=== PATIENT | male | born 1950 | race Caucasian/White ===

== ENCOUNTER 2021-10-14 06:43 | Observation (INO) ==
--- NOTE | 2021-09-10 14:07 | PAT Medication Instructions ---
Medication Instructions Date of Service September 10, 2021 Home Medications acetaminophen 500 mg tablet 1,000 mg PO Q6H PRN apixaban 5 mg tablet (Eliquis) 5 mg PO BID atorvastatin 20 mg tablet 20 mg PO HS furosemide 20 mg tablet 60 mg PO QAM sotalol 80 mg tablet 80 mg PO BID ASK your prescriber and surgeon apixaban 5 mg tablet (Eliquis) 5 mg PO BID DO NOT take the morning of surgery furosemide 20 mg tablet 60 mg PO QAM Take morning of surgery With a small sip of water, OTHERWISE NOTHING TO EAT OR DRINK AFTER MIDNIGHT: acetaminophen 500 mg tablet 1,000 mg PO Q6H PRN(okay to take up to 4 hours prior to surgery if needed) sotalol 80 mg tablet 80 mg PO BID Take evening before surgery acetaminophen 500 mg tablet 1,000 mg PO Q6H PRN(if needed) atorvastatin 20 mg tablet 20 mg PO HS sotalol 80 mg tablet 80 mg PO BID Other Notes If you have any questions please call us at [phone] or [phone] or [phone] or [phone]
--- NOTE | 2021-09-14 13:06 | Anesthesiology Consultation ---
Date of Service September 14, 2021 Assessment & Plan (1) Encounter for pre-operative examination: - Case discussed with Dr. Monk and plan is for cardiology pre-op optimization notation. Form completed. awaiting cardiology pre-op optimization response. - Pt states was instructed on holding apixaban (Eliquis) 48 hours prior to surgery, aware this would need to be 72 hours to receive neuraxial anesthesia. He is aware to see if that is acceptable per cardiology, otherwise will undergo GA. - cardiology office visit 09/03/2021 [facility]: "...Paroxysmal atrial fibrillation Dx 2018 on sotalol 07/2019 on eliquis. Moderate Mitral regurgitation With mitral valve prolapse. Heart failure with preserved ejection fraction NYHA 2-3. 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 Had echo cardiogram in jul shows eccentric jet appears moderate but we could be missing part of the jet. He is currently feeling better , swelling has improved, shortness of breath has improved...cannot walk much due to knee problems is scheduled to have knee surgery...Underwent gastroplexy . during the admisiosn was found to be in atrial fibrillation.work up Echo showed eccentric MR but severity could not be assessed. He was recommended to get OLI as outpatient due to recent procedure. I have reviewed images it appears to be moderate less likely to be severe...chest pain describes it as tightness in lower chest and epigastric region; the epigastric pain is now getting better . Worse with food, occurs randomly not associated with activity worse certain p ositions. Has not been active due to knee pain...take lasix 60 mg daily. BMP in one week...continue with eliquis...echo within 6 months..." - COVID screening: Per assessment on 09/14/2021: Travel screen negative, no known COVID-19 positive contacts or current COVID-19 related symptoms in past 2 weeks. Surgeon arranging preop COVID testing, scheduled /2021. Awaiting results. Chart Review Chart Review: Pending: Refer to Additional Notes / Consult section and Patient seen in Pre Admission Testing Teaching & Discussion Pre-Anesthesia Teaching/Discussion Notes: Instructed NPO after midnight before surgery, except medications with 15 cc of water. Medication instructions provided according to the PAT guidelines. History Surgery Operation Date: 10/14/21 09:35 Proposed Procedures p Left Total Knee Arthroplasty - Negrito Fry MD Height/Weight Height: 5 ft 7 in Weight: 95.9 kg Allergies Allergy/AdvReac Type Severity Reaction Status Date / Time No Known Allergies Allergy Unknown Verified 09/10/21 08:23 Medications Home Medications Medication Instructions Recorded Confirmed Last Taken acetaminophen 500 mg tablet 1,000 mg PO Q6H PRN 09/10/21 09/10/21 Unknown apixaban 5 mg tablet (Eliquis) 5 mg PO BID 09/10/21 09/10/21 Unknown atorvastatin 20 mg tablet 20 mg PO HS 09/10/21 09/10/21 Unknown furosemide 20 mg tablet 60 mg PO QAM 09/10/21 09/10/21 Unknown sotalol 80 mg tablet 80 mg PO BID 09/10/21 09/10/21 Unknown Past Medical History Medical History (Updated 09/15/21 @ 12:06 by Olinda Reynoso PA-C) Arthritis Atrial fibrillation on Eliquis Follows with [facility] cardiology Cardiology office visit (09/03/21): "Heart failure with preserved ejection fraction NYHA 3.. Take lasix 60 mg daily.. BMP in one week.. Paroxysmal AFib.. On sotalol.. Continue with eliquis.. Moderate eccentric Mitral regurgitaion With mild mitral valve prolapse Echo within 6 months.. 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 On Lipitor 10 mg daily: increase to 20 mg daily" Enlarged prostate Fluid retention Following salt restriction diet GERD (gastroesophageal reflux disease) Controlled, stable per pt Hyperlipidemia Mitral regurgitation moderate Patient denies h/o stroke, seizures, heart attack, heart failure, DM, HTN, blood clots or blood transfusions. Exercise / Class Metabolic Activity II 4-5 Yardwork/Stairs/Walk up hill (SOB with 1 FOS does not need to stop, denies change or worsening, follows with [facility] cardio; denies CP) Past Family History Family History Other No known health problems Past Surgical History Surgical History History of colonoscopy History of esophagogastroduodenoscopy (EGD) History of laparotomy Gastropexy (for volvulus) Hx of transurethral resection of prostate Past Anesthesia History No Hx of Anesthesia Complications and No Family Hx of Anesthesia Complications History of PONV No Hx of PONV and No Hx of Motion Sickness Social History Smoking Status: Former smoker Do You Dip or Chew Tobacco: No Smoking End Date: QUIT 1972 Hx Alcohol Use: No Hx Substance Use: No Review of Systems Occasional snoring, denies witnessed apneas or sleep studies. Patient denies chest pain, shortness of breath, dyspnea on exertion, fever, chills, cough, wheezing, or palpitations. Physical Exam Vital Signs Vitals BP 149/74 P 72 TEMP 97.5 SP02 95% on RA RESP 17 Physical Full cervical extension range of motion without pain Full TMJ range of motion TMD 3.5 finger breaths Mallampati Score 2 Dentition: intact, several missing teeth, several caps/crowns-none in front; denies chipped or loose teeth, implants or bridges Lungs: normal respiratory effort. Clear throughout to auscultation, no adventitious breath sounds Cardiac: regular rate and rhythm, no murmurs noted Carotid arteries: negative bruit bilat Lab Results Anesthesia Preop Results Results Anesthesia Widget: WBC 5.21 K/uL (4.8-10.8) 09/14/21 Hgb 14.3 g/dL (14.0-18.0) 09/14/21 Hct 44.0 % (42-52) 09/14/21 Plt 95 K/uL (130-400) L 09/14/21 PT 11.8 Seconds (9.0-12.0) 09/14/21 PTT 32.4 Seconds (21.0-31.0) H 09/14/21 INR 1.1 (0.9-1.1) 09/14/21 HA1c 5.8 % (4.5-5.6) H 09/14/21 Urine Color Yellow 09/14/21 Urine Appearance Clear (Clear) 09/14/21 Urine pH 7.0 (4.5-7.5) 09/14/21 Urine Specific [place] 1.023 (1.000-1.030) 09/14/21 Urine Protein Negative (Negative) 09/14/21 Urine Glucose (UA) Negative (Negative) 09/14/21 Urine Ketones Negative (Negative) 09/14/21 Urine Blood Negative (Negative) 09/14/21 Urine Nitrite Negative (Negative) 09/14/21 Urine Bilirubin Negative (Negative) 09/14/21 Urine Urobilinogen Negative (Negative) 09/14/21 Urine Leukocyte Esterase Negative (Negative) 09/14/21 Blood Type A Positive 09/14/21 Antibody Screen NEGATIVE 09/14/21 Testing Laboratory Results 09/10/2021 SODIUM: 142 POTASSIUM: 4.4 CHLORIDE: 103 CO2: 32 BUN: 25 CREATININE: 1.0 GLUCOSE: 105 Electrocardiogram Date: 07/10/21 NSR, rate 64 bpm Chest X-Ray Date: 09/14/21 FINDINGS: There are low lung volumes. No focal lung consolidations to suggest pneumonia. No evidence for pulmonary edema. No pleural fusions. No pneumothorax. The heart is normal in size. There is a tortuous thoracic aorta. Slight elevation of the left hemidiaphragm is likely due to the gastric bubble. Small patchy densities within the right lung base favor subsegmental atelectasis. IMPRESSION: No acute process. Echocardiogram Date: 07/28/21 EF 55-59% LV wall thickness normal Grade II diastolic dysfunction Moderate eccentric mitral valve regurgitation Trace to mild tricuspid regurgitation Stress Test Date: 06/29/19 Pharmacologic MPHR 99% Negative for ischemia EF > 70%
--- NOTE | 2021-10-13 06:18 | History & Physical Report ---
Date of Service October 13, 2021 Assessment & Plan (1) Primary osteoarthritis of left knee: Plan: Treatment options discussed with the patient. He has failed conservative measures. He would like to proceed with surgical intervention. Risks, benefits and alternatives to surgery including but not limited to infection, DVT, pain, stiffness, need for revision surgery, damage to blood vessels, damage to nerves, PE, , were discussed with the patient and they wish to proceed. Plan on left total knee arthroplasty with Dr. Fry at [facility] on 10/14/21. Will resume home Eliquis post op for DVT prophylaxis. Will plan on home health PT post op. All questions answered. He will follow up post op. History of Present Illness Chief Complaint: Left knee pain Primary Care Provider: NO PCP 71 year old male with PMHx significant for paroxysmal afib, HALLIE, high cholesterol, GERD, mitral regurgitation, HFpEF presents with ongoing left knee pain. Patient has pain interfering with his daily activities. He has failed conservative measures including home exercises and injections. He would like to proceed with surgical intervention. Patient denies headaches, sweats, fevers, chills, double vision, blurred vision, cough, sore throat, dysphagia, chest pain, sob, wheezing, n/v/d/c, numbness, tingling, fatigue, urinary symptoms, mo od disorders. ROS positive for left knee pain and stiffness. Allergies Allergy/AdvReac Type Severity Reaction Status Date / Time No Known Allergies Allergy Unknown Verified 09/10/21 08:23 Home Medications Medication Instructions Recorded Confirmed Type acetaminophen 500 mg tablet 1,000 mg PO Q6H PRN 09/10/21 09/10/21 History apixaban 5 mg tablet (Eliquis) 5 mg PO BID 09/10/21 09/10/21 History atorvastatin 20 mg tablet 20 mg PO HS 09/10/21 09/10/21 History furosemide 20 mg tablet 60 mg PO QAM 09/10/21 09/10/21 History sotalol 80 mg tablet 80 mg PO BID 09/10/21 09/10/21 History Past Med/Surg History Medical History (Updated 10/13/21 @ 06:22 by hCris Washburn PA-C) Arthritis Atrial fibrillation on Eliquis Follows with [facility] cardiology Cardiology office visit (09/03/21): "Heart failure with preserved ejection fraction NYHA 3.. Take lasix 60 mg daily.. BMP in one week.. Paroxysmal AFib.. On sotalol.. Continue with eliquis.. Moderate eccentric Mitral regurgitaion With mild mitral valve prolapse Echo within 6 months.. 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 On Lipitor 10 mg daily: increase to 20 mg daily" Enlarged prostate Fluid retention Following salt restriction diet GERD (gastroesophageal reflux disease) Controlled, stable per pt Hyperlipidemia Mitral regurgitation moderate Surgical History History of colonoscopy History of esophagogastroduodenoscopy (EGD) History of laparotomy Gastropexy (for volvulus) Hx of transurethral resection of prostate Family History Other No known health problems Social History (Updated 09/10/21 @ 08:49 by Tere Rouse RN) Smoking Status: Former smoker Second Hand Exposure: No; Hx Alcohol Use: No Hx Substance Use: No Preferred Language: Romanian Communication Ability: Effective Shop Director Required: No Beliefs That Will Affect Care: None Current Living Situation: Spouse current occupational status: retired Feels Safe at Home: Yes Assistive Devices: Brace/Splint/Immobilizer and Glasses Review of Systems All systems reviewed & are unremarkable except as noted in HPI & below Physical Exam Constitutional: well developed and well nourished; no acute distress Eyes: PERRL, conjunctivae normal, anicteric sclerae ENMT: external ear and nose normal, oropharynx normal Neck: trachea midline, no thyromegaly Respiratory: normal respiratory effort, lungs clear to auscultation Cardiovascular: Rate/Rhythm: regular rate and regular rhythm Heart Sounds: + murmur (systolic murmur) Extremities: + edema (mild b/l LE edema) Musculoskeletal: Left knee: Varus alignment. Moderate effusion. Tenderness medial joint line. Positive Edgar's. Stable to valgus and varus stress. ROM 10-125 degrees with crepitation. Skin: no rashes, warm and dry Neurologic: patellar DTR's 2+ bilat, sensation intact Psychiatric: A+Ox3, euthymic affect Results & Data ([facility]) Diagnostic Findings Left knee: Endstage osteoarthritis left knee. Varus alignment. Bone on bone medial compartment. Periarticular osteophyte formation and subchondral sclerosis.
[~2021-10-14 06:43] MED LIST: ACETAMINOPHEN 500 MG TAB PO SCH; BUPIVACAINE 0.5 % 5 MG/1 ML PF 10ML VIAL ONE; CeleBREX 200 MG CAP PO SCH; FAMOTIDINE 20 MG TAB PO SCH; GABAPENTIN 300 MG CAP PO SCH; LR 500ML BOLUS, THEN 15ML/HR IV SCH; METOCLOPRAMIDE HCL 10 MG TABLET PO SCH; ROPIVACAINE 0.5% 5 MG/ML 30 ML VIAL ONE; ROPIVACAINE 0.5% HCL/PF 150 MG, BUPIVACAINE 0.75% MPF 20 ML, EPINEPHrine 30MG/30ML (OR ... INSTIL SCH; TRANEXAMIC ACID 1,000 MG **IV Intra-op IV SCH; TRANEXAMIC ACID 1,000 MG **IV Pre-op IV SCH; ceFAZolin 2000MG 2,000 MG/15 ML SYR IV SCH; dexAMETHasone 4 MG TAB PO SCH
[2021-10-14] MEDS ORDERED: HYDROmorphone INJ 2 MG/ML SYR/VIAL IV PRN (08:11)
[2021-10-14] MEDS ORDERED: fentaNYL citrate 100 MCG/2 ML VIAL IV PRN (08:11)
[2021-10-14] MEDS ORDERED: ONDANSETRON INJ 2 MG/ML 2 ML VIAL IV PRN ×2 (08:11→13:50)
[2021-10-14] MEDS ORDERED: ePHEDrine sulfate 50 MG/ML AMP IV PRN (08:11)
[2021-10-14] MEDS ORDERED: ATROPINE SULFATE 0.1 MG/ML 10ML SYR IV PRN (08:11)
[2021-10-14] MEDS ORDERED: PROMETHAZINE HCL 12.5 MG in SODIUM CHLORIDE 0.9% 50 ML IV PRN (08:11)
[2021-10-14] MEDS ORDERED: MIDAZOLAM HCL 1 MG/ML 2ML VIAL ONE ×2 (09:23)
--- NOTE | 2021-10-14 09:28 | History & Physical Bridge Note ---
Date of Service October 14, 2021 History & Physical Bridge Note I have examined the patient, reviewed the History & Physical and in the interval since the performance of the History & Physical I have noted the following changes of clinical significance: no changes noted
[2021-10-14] MEDS ORDERED: ORTHO JOINT ANESTHETIC ONE (09:32)
[2021-10-14] MEDS ORDERED: PROPOFOL IV EMULSION 10 MG/ML 20 ML VIAL IV ONE (09:45)
[2021-10-14] MEDS ORDERED: LIDOCAINE 2% 2 ML VIAL/AMP(20MG/ML) INFIL ONE (11:31)
--- NOTE | 2021-10-14 11:42 | Operative Report ---
Post Operative Report Pre & Post Diagnosis Operation Date: 10/14/21 09:30 Pre-Op Diagnosis: Left Knee Osteoarthritis Post-Op Diagnosis: Left Knee Osteoarthritis I identified the patient and participated in the time-out.: Yes Procedure Operation Date: 10/14/21 09:30 Actual Procedures p Left Total Knee Arthroplasty(Left), superficial wound VAC- Negrito Fry MD Surgeon Negrito Fry MD Shrimp Header Ceferino ALARCON Estimated Blood Loss 20 Findings Consistent with Post-Op Diagnosis Specimens Bone cuts Drains 2 Hemovac Anesthesia Type MAC Spinal Regional Complications none Disposition Disposition: Recovery Room Indications 71-year-old male with chronic progressive osteoarthritis of the left knee. Patient has a [id number] medial compartment subluxation of the femur medially on the tibia. Description of Procedure Patient was taken to the operating room placed supine on the operating table and anesthetized under spinal MAC regional block anesthesia. Exam under anesthesia demonstrated varus left knee no pseudolaxity with tight varus knee. Range of motion was 0 through 125. A pneumatic tourniquet was placed about the thigh of the left lower extremity. The left lower extremity was prepped and draped in usual sterile fashion. The leg was elevated exsanguinated with an Esmarch bandage and the pneumatic tourniquet was raised to 325 mm mercury. When the procedure was started this was inadequate due to some tourniquet dysfunction and we had to raise it in increments up to 375 which was more satisfactory. Incisio n was made across the left knee. The skin was incised longitudinally subcutaneous flaps were elevated and an incision was made through the medial retinaculum extending up into the mid third of the quadriceps tendon and extended down to the medial tibial tubercle. Intra-articular findings demonstrated [id number] eburnated bone medial compartment anteromedial wear pattern. There were tricompartmental osteophytes and chronic medial meniscus tear. The knee was exposed by excising the infrapatellar fat pad, excising the meniscal remnants and anterior cruciate ligament. Any inflamed synovial tissue was resected. The fat pad over the anterior femur was resected for placement of the component in that area. The lateral synovial bands were release. The femur was exposed. The custom femoral cutting block was pinned in position. The distal femoral cutting block was applied. The distal femoral cut was made with the oscillating saw. The size 8, 4-in-1 cutting block was placed. The anterior and posterior chamfer cuts were made. The knee was extended and a subperiosteal peel lateral release was performed around the patella. The patella width was measured and width was reproduced using freehand cut technique. The 35 millimeter symmetrical patella was used. 3 drill holes are made for the pegs. The tibia was exposed. A custom tibial cutting block was positioned and drill holes were made for the cutting guide. Cutting guide was placed and the proximal cut was made with the oscillating saw. All osteophytes were resected. The lamina retail property manager was used to assess ligamentous balance and the ligaments were balanced in extension and flexion. This required medial posterior medial release and piecrust MCL. The tibia was reexposed and measured for a size F tibial component. This was externally rotated in line with the tibial tubercle and the fixation pins were drilled. The proximal tibia was fashioned with the drill and punch. The size 8 CR femoral trial was inserted. The trial MC inserts were used. The 14 mm insert gave balanced ligaments through full range of motion. The patella tracked centrally. the trials were removed. The orthomix anesthetic cocktail was injected per protocol. The knee was then copiously irrigated with pulsatile lavage saline solution. The final components were cemented with Refobacin bone cement. The final components were Frank persona a left standard femoral component, left F tibial component, left 14 mm MC polyethylene, 35 symmetrical polyethylene patella. After the cement cured with the knee in full extension the Betadine soak was used per protocol. The knee joint was copiously irrigated with pulsatile lavage saline solution . 2 drains were brought out laterally and connected to a Hemovac. The quadriceps tendon and medial retinaculum were closed with interrupted [id number] #1 Vicryl sutures. The knee was taken through a full range of motion and repair was secure. Range of motion 0 through 130 degrees. The subcutaneous tissues were closed with 2-0 Vicryl sutures and skin was closed with angelita. Herbert and Acticoat superficial wound VAC was and the patient tolerated the procedure well. Ceferino ALARCON my physician photographer assistant participated as producer assistant through the entire procedure assisting in all aspects of the procedure including an assisting in soft tissue retraction, instrument management ,leg positioning, the closure, superficial wound VAC application and will participate in the postoperative care of the patient. I attest to the content of the Intraoperative Record and any orders documented therein. Any exceptions are noted below.
--- NOTE | 2021-10-14 12:52 | XRay Report ---
XR knee LT 1 or 2V routine HISTORY: 71 years-old Male Surgical Post Op [knee total joint arthroplasty COMPARISON: None TECHNIQUE: 2 views of the left knee FINDINGS: Left knee total joint arthroplasty and patella resurfacing. Anterior midline skin angelita are noted a long with expected postoperative soft tissue swelling and deep tissue air with surgical drainage cath eter in place. Arterial calcifications. No acute fracture, malalignment or an expected opaque foreign body. IMPRESSION: Left knee total joint arthroplasty with expected postoperative changes. ACT 112: Negative or not required by law. The above report was generated using voice recognition software. It may contain grammatical, syntax o r spelling errors. Electronically signed by: Cornel Crawford M.D. 10/14/2021 12:50 PM
[2021-10-14] MEDS ORDERED: TAMSULOSIN HCL 0.4 MG CAP PO PRN (13:50)
[2021-10-14] MEDS ORDERED: HYDROmorphone INJ 0.5 MG/0.5 ML SYR IV PRN (13:50)
[2021-10-14] MEDS ORDERED: bisacodyL 10 MG SUPP PR PRN (13:50)
[2021-10-14] MEDS ORDERED: MAGNESIUM HYDROXIDE SUSP 30 ML UDC PO PRN (13:50)
[2021-10-14] MEDS ORDERED: NALOXONE HCL 0.4 MG/1 ML VIAL/CARP IV PRN (13:50)
[2021-10-14] MEDS ORDERED: SODIUM CHLORIDE 0.9% 1000ML 1,000 ML IV SCH (13:50)
[2021-10-14] MEDS ORDERED: oxyCODONE HCL IR 5 MG TAB (IMMEDIATE RELEASE) PO PRN (13:50)
[2021-10-14] MEDS ORDERED: METOCLOPRAMIDE HCL INJ 5 MG/ML 2 ML VIAL IV PRN (13:50)
--- NOTE | 2021-10-14 14:21 | Anesthesiology Progress Note ---
Date of Service October 14, 2021 Anesthesia Post Procedure Vital Signs Vital Signs: Temp Pulse Pulse Resp BP BP Pulse Ox 10/14/21 14:00 72 21 108/62 97 10/14/21 13:45 68 20 108/67 95 10/14/21 13:35 70 20 108/63 95 10/14/21 13:25 36.5 C 70 17 115/59 L 96 10/14/21 13:15 67 22 109/62 95 10/14/21 13:05 70 20 108/65 96 10/14/21 12:55 66 22 108/72 93 10/14/21 12:45 69 23 113/71 93 10/14/21 12:35 67 22 114/67 92 10/14/21 12:25 71 21 121/70 98 10/14/21 12:16 36.0 C L 73 20 117/69 97 10/14/21 07:05 36.7 C 61 20 133/79 93 Pain Intensity Left Knee: Pain Intensity: 5 Transfer of Care Handoff Completed per policy Notes Mental Status: alert / awake / arousable and participated in evaluation Patient Amnestic to Procedure: Yes Nausea / Vomiting: adequately controlled Pain: adequately controlled Airway Patency, RR, SpO2: stable & adequate BP & HR: stable & adequate Hydration State: stable & adequate Neuraxial Anesthesia: was administered and sensory block is resolving Anesthetic Complications: no major complications apparent
--- NOTE | 2021-10-14 15:02 | Consultation ---
Date of Consultation October 14, 2021 Assessment & Plan (1) Primary osteoarthritis of left knee: (2) Atrial fibrillation: (3) Chronic heart failure with preserved ejection fraction (HFpEF): (4) Hyperlipidemia: This is a 71-year-old male who has significant past medical history of PAF anticoagulated on Eliquis and rhythm controlled on sotalol, chronic HFpEF, HLD, BPH, GERD, thrombocytopenia, depression who presents for elective left total knee arthroplasty by Dr. Fry. L Knee Osteoarthritis Status post left total knee arthroplasty POD #0, Dr. Fry EBL [address] mL, [address] tolerated procedure well Pain/wound management per orthopedics Activity and therapy as per orthopedics Encourage incentive spirometry Monitor postoperative hemoglobin and platelets Reduce postop IV fluids to 60 cc an hour due to known chronic HFpEF PAF Rate and rhythm controlled on sotalol Continue Eliquis for thrombotic control Chronic HFpEF Mitral regurgitation Continue Lasix Strict I's and O's, daily weights Reduce IV fluids to 60 cc/h, once tolerating oral intake will discontinue IV fluid altogether avoid fluid overload Hyperlipidemia Continue statin Chronic thrombocytopenia Preop platelet 95, monitor DVT prophylaxis: Eliquis Dispo: Per primary PCP: [facility] Full code Patient was seen and examined in collaboration with, Dr. Mccray, please see addendum Thank you for this consultation. We will follow the patient with you during their hospital stay. You can reach a member of the [facility] Hospitalist Team 03/01 via hospitalist role on tiger text. Supervising Physician Co-Signing Physician Notes 71 yo M w/ PMH of PAF on eliquis and sotalol, chronic HFpEF, HLD, BPH, GERD presented to our Hospital 10/14 for elective Left TKA for L Knee OA, s/p Lt TKA POD #[address] Fry. Pt at bedside appears comfortable, pain under control. PT/OT, Pain Mx per Ortho. Resume eliquis as soon as deemed safe per ortho. c/w incentive spirometer. Monitor labs for acute blood loss anemia. Resume home meds. Upon Exam GENERAL: Alert and oriented x3. NAD, on RA. HEENT: No pallor, no icterus. Pupils equal, round and reactive to light. Oral mucosa moist. NECK: No JVD, no neck masses. HEART: S1 and S2 heard. Regular rate and rhythm. Systolic murmur at aortic and pulmonic area, no gallop. RESPIRATORY SYSTEM: Normal AP diameter. No accessory muscle use. No wheezing, no crackles. ABDOMEN: Soft, bowel sounds present, nontender, no distention. CENTRAL NERVOUS SYSTEM: No facial droop. Speech is clear. Obeys simple commands. Moves extremities. EXTREMITIES: No edema, no erythema seen. Lt knee with clean dressing w/ MIGUEL ANGEL drain with minimal serosanguineous collection in situ. I have seen and examined the patient and have discussed the case with the provider above. I agree with the assessment and plan as stated. History of Present Illness Requesting Physician: Dr. Fry Reason for Consultation: Postop medical management Attending Physician: Negrito Fry MD History of Present Illness This is a 71-year-old male who has significant past medical history of PAF anticoagulated on Eliquis and rhythm controlled on sotalol, chronic HFpEF, HLD, BPH, GERD, thrombocytopenia, depression who presents for elective left total knee arthroplasty by Dr. Fry. Post operatively pt feels well. Had mild L knee pain. Denies f/c/s, chest pain, sob, cough, URI sx, n/v/d, abd pain, denies change in bowel or urinary habits. and granddaughter are at bedside. He offers no concerns or questions at this time. Preoperatively he was seen by cardiology. He has known PAF and chronic HFpEF NYHA III and was euvolemic. It was felt he was intermediate risk for cardiac events and was otherwise cleared for surgery. Patient's last echocardiogram 07/28/2021 revealed EF 55 to 59%, grade 2 diastolic dysfunction, moderate eccentric mitral valve regurgitation. Allergies Allergy/AdvReac Type Severity Reaction Status Date / Time No Known Allergies Allergy Unknown Verified 10/14/21 07:02 Home Medications Medication Instructions Recorded Confirmed Type acetaminophen 500 mg tablet 1,000 mg PO Q6H PRN 09/10/21 10/14/21 History apixaban 5 mg tablet (Eliquis) 5 mg PO BID 09/10/21 10/14/21 History atorvastatin 20 mg tablet 20 mg PO HS 09/10/21 10/14/21 History sotalol 80 mg tablet 80 mg PO BID 09/10/21 10/14/21 History furosemide 40 mg tablet 80 mg PO DAILY 10/14/21 10/14/21 History Patient History Medical History (Updated 10/14/21 @ 14:58 by Rosalinda Pereira PA-C) Arthritis Atrial fibrillation on Eliquis Follows with [facility] cardiology Cardiology office visit (09/03/21): "Heart failure with preserved ejection fraction NYHA 3.. Take lasix 60 mg daily.. BMP in one week.. Paroxysmal AFib.. On sotalol.. Continue with eliquis.. Moderate eccentric Mitral regurgitaion With mild mitral valve prolapse Echo within 6 months.. 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 On Lipitor 10 mg daily: increase to 20 mg daily" Enlarged prostate Fluid retention Following salt restriction diet GERD (gastroesophageal reflux disease) Controlled, stable per pt Hyperlipidemia Mitral regurgitation moderate Surgical History History of colonoscopy History of esophagogastroduodenoscopy (EGD) History of laparotomy Gastropexy (for volvulus) Hx of transurethral resection of prostate Family History Brother Myocardial infarction Coronary heart disease S/P CABG (coronary artery bypass graft) Father Myocardial infarction, Onset Age: 50 Social History Smoking Status: Former smoker Smoking End Date: QUIT 1972; Second Hand Exposure: No; Do You Dip or Chew Tobacco: No; Hx Alcohol Use: No Hx Substance Use: No Preferred Language: Danish Communication Ability: Effective 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 Beliefs That Will Affect Care: None Current Living Situation: Spouse current occupational status: retired Other Information That Helps Us Care for You: No Feels Safe at Home: Yes Safety Concerns: Feels Safe At This Time Assistive Devices: Brace/Splint/Immobilizer and Glasses Assistive Devices Comment: KNEE BRACE PRN Review of Systems Review of Systems: All systems reviewed & are unremarkable except as noted in HPI & below Physical Exam Physical Exam: Constitutional: WD/WN, vitals as above, NAD, sitting up in bed, pleasant, conversing easily Head: Normocephalic, Atraumatic Eyes: PERRL, conjunctivae normal, anicteric sclerae ENMT: external ear and nose normal, oropharynx normal Neck: trachea midline, no thyromegaly normal visual inspection Respiratory: normal respiratory effort, lungs clear to auscultation, no wheeze, rales, rhonchi. Normal insp/exp effort, no accessory muscle use Cardiovascular: RRR, 2/6 DYLON heard best LUSB with radiation to apex, scd in place, no edema Vessels: no JVD or carotid bruit Chest: normal inspection of chest Abdomen: normal bowel sounds, soft, nontender, no hepatosplenomegaly Musculoskeletal: no cyanosis or clubbing,AROM x 4, dressing to L knee in place, cdi, hemovac in place Skin: no rashes, warm and dry normal turgor Neurologic: PERRL, EOMI, accommodation nl, no face palsy, no dysarthria CN's II-XI intact bilaterally and moves all extremities Psychiatric: A+Ox3, euthymic affect Lymphatic: no cervical or axillary lymphadenopathy : deferred Results & Data ([facility]) Vital Signs (Past 12 Hours) Vital Signs Temp Pulse Pulse Resp BP BP Pulse Ox 10/14/21 14:20 36.4 C L 72 18 122/74 93 10/14/21 14:00 72 21 108/62 97 10/14/21 13:45 68 20 108/67 95 10/14/21 13:35 70 20 108/63 95 10/14/21 13:25 36.5 C 70 17 115/59 L 96 10/14/21 13:15 67 22 109/62 95 10/14/21 13:05 70 20 108/65 96 10/14/21 12:55 66 22 108/72 93 10/14/21 12:45 69 23 113/71 93 10/14/21 12:35 67 22 114/67 92 10/14/21 12:25 71 21 121/70 98 10/14/21 12:16 36.0 C L 73 20 117/69 97 10/14/21 07:05 36.7 C 61 20 133/79 93 Laboratory Results Lab work reviewed in [facility] 10/01/2021 revealed sodium 136, BUN 32, creatinine 1.2. CBC on 09/14/2021 revealed H&H 14.3 and 44.0, platelet 95, A1c 5.8, UA negative, SARS-CoV-2 negative. Diagnostic Findings Knee X-Ray 10/14/21 12:19 XR knee LT 1 or 2V routine HISTORY: 71 years-old Male Surgical Post Op [knee total joint arthroplasty COMPARISON: None TECHNIQUE: 2 views of the left knee FINDINGS: Left knee total joint arthroplasty and patella resurfacing. Anterior midline skin angelita are noted along with expected postoperative soft tissue swelling and deep tissue air with surgical drainage catheter in place. Arterial calcifications. No acute fracture, malalignment or an expected opaque foreign body. IMPRESSION: Left knee total joint arthroplasty with expected postoperative changes. ACT 112: Negative or not required by law. The above report was generated using voice recognition software. It may contain grammatical, syntax or spelling errors. revealed no acute process Medications Administered Current Inpatient Medications Acetaminophen (Acetaminophen 500 Mg Tab) 1,000 mg PO Q8 DELFINA Stop: 11/13/21 14:59 Apixaban (Apixaban 5 Mg Tablet) 5 mg PO BID DELFINA Stop: 11/14/21 08:59 Atorvastatin Calcium (Atorvastatin 20 Mg Tab) 20 mg PO HS DELFINA Stop: 11/13/21 20:59 Bisacodyl (Bisacodyl 10 Mg Supp) 10 mg NH DAILY PRN PRN Reason: Constipation Stop: 11/13/21 13:49 Docusate Sodium (Docusate Sodium 100 Mg Cap) 100 mg PO BID DELFINA Stop: 11/13/21 20:59 Furosemide (Furosemide 20 Mg Tab) 60 mg PO QAM DELFINA Stop: 11/14/21 08:59 Hydromorphone HCl (Hydromorphone Inj 0.5 Mg/0.5 Ml Syr) 0.5 mg IV Q4H PRN PRN Reason: Pain or Pre PT Stop: 10/28/21 13:49 Sodium Chloride (Nss 1000ml) 1,000 mls @ 100 mls/hr IV .Q10H DELFINA Stop: 10/15/21 06:00 Cefazolin Sodium (Ancef 2000mg) 2,000 mg in 15 mls @ 3.75 mls/min IV Q8H DELFINA; Protocol Stop: 10/15/21 02:33 Magnesium Hydroxide (Magnesium Hydroxide Susp 30 Ml Udc) 30 ml PO Q6H PRN PRN Reason: Constipation Stop: 11/13/21 13:49 Metoclopramide HCl (Metoclopramide Hcl Inj 5 Mg/Ml 2 Ml Vial) 10 mg IV Q6H PRN PRN Reason: Nausea And Vomiting Stop: 11/13/21 13:49 Multivitamins (Multivitamin Tab) 1 tab PO QAM DELFINA Stop: 11/14/21 08:59 Naloxone HCl (Naloxone Hcl 0.4 Mg/1 Ml Vial/Carp) 0.1 mg IV Q5M PRN PRN Reason: Oversedation/Resp Depression Stop: 11/13/21 13:49 Ondansetron HCl (Ondansetron Inj 2 Mg/Ml 2 Ml Vial) 4 mg IV Q6H PRN PRN Reason: Nausea And Vomiting Stop: 11/13/21 13:49 Oxycodone HCl (Oxycodone Hcl Ir 5 Mg Tab (Immediate Release)) 5 - 10 mg PO Q4H PRN PRN Reason: Pain or Pre PT Stop: 10/28/21 13:49 Sennosides (Senna 8.6 Mg Tab) 17.2 mg PO HS DELFINA Stop: 11/13/21 20:59 Sotalol HCl (Sotalol Hcl 80 Mg Tab) 80 mg PO BID DELFINA Stop: 11/13/21 20:59 Tamsulosin HCl (Tamsulosin Hcl 0.4 Mg Cap) 0.4 mg PO QAM PRN PRN Reason: UNABLE to void Stop: 11/13/21 13:49
[2021-10-14] MEDS: ACETAMINOPHEN 500 MG TAB PO SCH ×2 (15:03→21:14)
[2021-10-14] MEDS: ceFAZolin 2000MG 2,000 MG/15 ML SYR IV SCH (19:26)
[2021-10-14] MEDS ORDERED: SENNA 8.6 MG TAB PO SCH (21:00)
[2021-10-14] MEDS ORDERED: ATORVASTATIN 20 MG TAB PO SCH (21:00)
[2021-10-14] MEDS: SOTALOL HCL 80 MG TAB PO SCH (21:15)
[2021-10-14] MEDS: DOCUSATE SODIUM 100 MG CAP PO SCH (21:16)
[2021-10-15] MEDS: ceFAZolin 2000MG 2,000 MG/15 ML SYR IV SCH (03:31)
[2021-10-15] MEDS: ACETAMINOPHEN 500 MG TAB PO SCH (05:57)
[2021-10-15 06:38] LABS: Hematocrit (blood only) 41.8 % (42-52); Hemoglobin 13.6 g/dL (14.0-18.0); Mean Corpuscular Hgb Conc 32.5 g/dL (32-36); Mean Corpuscular Volume 92.1 fL (80-100); Platelet Count 111 K/uL (130-400); RDW Coefficient of Variation 14.1 % (11.5-14.5); RDW Standard Deviation 47.7 fL (36.4-46.3); Red Blood Count 4.54 M/uL (4.7-6.1); White Blood Count 14.08 K/uL (4.8-10.8)
[2021-10-15 06:55] LABS: BUN Creatinine Ratio 27.4 (10-20); Calcium 8.9 mg/dl (8.5-10.1); Creatinine Clr Calc Pharmacy 58.6 ml/min; Est GFR (African American) 66.9 ml/min; Est GFR (Non-African American) 57.7 ml/min; Potassium 4.2 mmol/L (3.5-5.1)
--- NOTE | 2021-10-15 07:48 | Orthopedic Progress Note ---
Date of Service October 15, 2021 Assessment & Plan (1) Primary osteoarthritis of left knee: Plan: Postop day #1 left total knee arthroplasty. -PT/OT -DVT prophylaxis: SCDs, teds, Eliquis as prescribed -Pain management as written -AM labs: Leukocytosis likely reactive. Hemoglobin at 13.6 from 14.3 preop. -Discharge planning: Plan on discharge home with home health likely later today as long as therapy goes well. Admission and Anticipated Discharge Date Admission Date: October 14, 2021 Subjective Patient is postop day 1 left total knee. He is doing well this morning. Pain is well controlled. He has no other complaints. Denies chest pain, dizziness, headaches, fever/chills. Shortness of breath at baseline. Review of Systems Review of Systems: All systems reviewed & are unremarkable except as noted in Subjective Physical Exam Physical Exam: Left knee dressing is clean, dry, intact. Hemovac functioning and megan in place and functioning. No calf tenderness. Toes are mobile. Distal neurovascular status and sensation intact. He has good dorsi flexion. Results & Data ([facility]) Vital Signs (Past 12 Hours) Vital Signs Temp Pulse Resp BP Pulse Ox 10/15/21 07:07 36.5 C 61 18 143/84 H 96 10/15/21 03:35 36.5 C 66 16 147/78 H 92 10/14/21 22:32 36.7 C 66 16 122/76 94
[2021-10-15] MEDS: SOTALOL HCL 80 MG TAB PO SCH (08:33)
[2021-10-15] MEDS: DOCUSATE SODIUM 100 MG CAP PO SCH (08:34)
[2021-10-15] MEDS ORDERED: FUROSEMIDE 80 MG TAB PO SCH (09:00)
[2021-10-15] MEDS ORDERED: APIXABAN 5 MG TABLET PO SCH (09:00)
[2021-10-15] MEDS ORDERED: FUROSEMIDE 20 MG TAB PO SCH (09:00)
[2021-10-15] MEDS ORDERED: MULTIVITAMIN TAB PO SCH (09:00)
--- NOTE | 2021-10-17 08:40 | Discharge Summary ---
Date of Service October 17, 2021 Admission HPI Per Admitting Provider 71 year old male with PMHx significant for paroxysmal afib, HALLIE, high cholesterol, GERD, mitral regurgitation, HFpEF presents with ongoing left knee pain. Patient has pain interfering with his daily activities. He has failed conservative measures including home exercises and injections. He would like to proceed with surgical intervention. Patient denies headaches, sweats, fevers, chills, double vision, blurred vision, cough, sore throat, dysphagia, chest pain, sob, wheezing, n/v/d/c, numbness, tingling, fatigue, urinary symptoms, mood disorders. ROS positive for left knee pain and stiffness. Admission Exam Per Admitting Provider Constitutional: well developed and well nourished; no acute distress Eyes: PERRL, conjunctivae normal, anicteric sclerae ENMT: external ear and nose normal, oropharynx normal Neck: trachea midline, no thyromegaly Respiratory: normal respiratory effort, lungs clear to auscultation Cardiovascular: Rate/Rhythm: regular rate and regular rhythm Heart Sounds: + murmur (systolic murmur) Extremities: + edema (mild b/l LE edema) Musculoskeletal: Left knee: Varus alignment. Moderate effusion. Tenderness medial joint line. Positive Edgar's. Stable to valgus and varus stress. ROM 10-125 degrees with crepitation. Skin: no rashes, warm and dry Neurologic: patellar DTR's 2+ bilat, sensation intact Psychiatric: A+Ox3, euthymic affect Principal Diagnosis Left knee osteoarthritis Discharge Exam Left knee dressing is clean, dry, intact. Hemovac functioning and megan in place and functioning. No calf tenderness. Toes are mobile. Distal neurovascular status and sensation intact. He has good dorsi flexion. Constitutional well developed and well nourished; no acute distress Discharge Data Allergies Allergy/AdvReac Type Severity Reaction Status Date / Time No Known Allergies Allergy Unknown Verified 10/14/21 07:02 Consultations 10/09/21 17:13 Consult Hospitalist Routine Procedures Performed Operation Date: 10/14/21 09:30 Actual Procedures p Left Total Knee Arthroplasty(Left) - Negrito Fry MD Ordered Studies 10/14/21 05:00 US - OR guided needle placemen Routine Hospital Course (1) Primary osteoarthritis of left knee: Patient presented for same day admission following left total knee arthroplasty on 10/14/2021. He tolerated procedure well. The Patient had an uneventful hospital course. Post-operatively, his activity was progressed and well tolerated. They participated in PT with ambulation distance of 150feet. ROM of operative knee reached 85 degrees. Labs remained stable- lowest hemoglobin recorded: 13.6. Dr. Mccray of medical service was consulted for medical management during admission. Pain controlled on oral medications. Please refer to daily progress notes and PT notes for complete details. After exam on 10/15/2021, patient was felt to be stable for discharge home with home health PT. Patient will f/u in the office in about 2 weeks for further evaluation including x-rays and incision check, sooner if having any issues or concerns. Postop day #1 left total knee arthroplasty. -PT/OT -DVT prophylaxis: SCDs, teds, Eliquis as prescribed -Pain management as written -AM labs: Leukocytosis likely reactive. Hemoglobin at 13.6 from 14.3 preop. -Discharge planning: Plan on discharge home with home health likely later today as long as therapy goes well. Lab Results 10/14/21 10/15/21 10/15/21 Range/Units 07:01 06:22 06:22 WBC 14.08 H (4.8-10.8) K/uL RBC 4.54 L (4.7-6.1) M/uL Hgb 13.6 L (14.0-18.0) g/dL Hct 41.8 L (42-52) % MCV 92.1 (80-100) fL MCH 30.0 (25-34) pg MCHC 32.5 (32-36) g/dL RDW Std Deviation 47.7 H (36.4-46.3) fL RDW Coeff of Stoney 14.1 (11.5-14.5) % Plt Count 111 L (130-400) K/uL MPV 11.0 H (7.4-10.4) fL Sodium 136 (136-145) mmol/L Potassium 4.2 (3.5-5.1) mmol/L Chloride 100 (98-107) mmol/L Carbon Dioxide 31 (21-32) mmol/L Anion Gap 5 (3-11) BUN 34 H (6-23) mg/dl Creatinine 1.24 (0.6-1.4) mg/dl Est Cr Clr Drug Dosing 58.6 ml/min Est GFR ( Amer) 66.9 ml/min Est GFR (Non-Af Amer) 57.7 ml/min BUN/Creatinine Ratio 27.4 H (10-20) Glucose 116 H (70-99(Fasting)) mg/dl Calcium 8.9 (8.5-10.1) mg/dl SARS-CoV-2, RNA, NAAT NEGATIVE (NEGATIVE) Total Time Total Time Spent Total Time Spent (In Minutes): 20 Discharge Plan Discharge Items Patient Disposition: Home - Home Health Services Reason For Visit: Left Knee Osteoarthritis Discharge Diagnosis: Left knee osteoarthritis Activity: Per Instructions section Non-emergency contact: Surgeon Call non-emergency contact if: you have any medication questions, your pain is not controlled, your pain is concerning for you, you have a fever, your temperature is above 101, your wound has increased redness and your wound has increased drainage Follow-up/Referrals: Emmanuel Blanco MD [Primary Care Provider] - Diet: Regular Addtl Attending Provider Instructions: ACTIVITY RECOMMENDATIONS: SELF CARE INSTRUCTIONS AFTER TOTAL KNEE REPLACEMENT A. You may need to continue a physical therapy program after discharge from the hospital. There are several options available to you. Your doctor will assist you in selecting the best one for you. 1. An out-patient facility 2 to 3 times a week for therapy or home therapy. 2. Continue working on all exercises taught to you in the hospital. Your goals should be to increase bending of your knee to 90 degrees and beyond and to fully straighten your knee. B. You may progress at your own pace from walking with a walker or crutches to a cane; then to no assistive devices. C. Make walking a part of your daily routine. Be up as much as comfortable with rest periods throughout the day. Rest with leg elevation is very important. Use the ice wrap frequently for the first 3-4 weeks. D. There are no restrictions on activities. You may ride in a car, shop, participate in tile molder hand and all social activities. E. Wear the long elastic stockings (NEPTALI hose) 20 hours a day for 2 weeks after surgery. They can be removed several times a day for laundering and for a bath. F. You may shower, no tub baths until cleared by your doctor. SPECIAL CARE INSTRUCTIONS: VERY IMPORTANT TO READ AND REVIEW A. There are a few signs you need to watch for after you are home. Call [facility] if you notice any of the followin. Increased severe knee pain. Some pain is expected especially when you exercise. 2. Increased swelling in your leg or knee; pain or swelling of the calf muscle in either lower leg. 3. Any fluid drainage from the incision. 4. Shortness of breath or chest pain. B. Please call [facility] at if you have any concerns or questions about your operation or recovery. The doctor or his nurse will return your call promptly. C. You must take antibiotics before dental work, bladder, bowel or other surgery. Your doctor will provide you with a permanent care to carry describing this precaution. IMPORTANT: * REMEMBER TO TAKE ASPIRIN, 81 MG, TWICE DAILY FOR 4 WEEKS UNLESS OTHERWISE DIRECTED. THIS IS YOUR BLOOD THINNER. * HIGH RISK PATIENTS MAY BE PRESCRIBED A STRONGER BLOOD THINNER. THIS WILL BE PROVIDED AT DISCHARGE. * CALL IF INCREASED PAIN, REDNESS, DRAINAGE OR FEVER GREATER THAT 101. * WEAR NEPTALI HOSE 20 HOURS PER DAY FOR 2 WEEKS. This is a large suction dressing covering your incision. This will help pull any excess drainage from the wound and allow your incision to heal properly. You may shower with this if you can keep the unit outside of the shower. If any bleeding or leakage is noted please call your doctor's office. This will remain on your incision for 7 days and then should be removed. This can be done yourself or by the home nursing staff if applicable. The entire unit is disposable once removed. Once removed, keep incision clean and dry. If redness or drainage is noted, please call your surgeon. IF INCISION IS LEAKING THROUGH DRESSING, CALL THE OFFICE . FOLLOW UP VISIT: If appointment is not already scheduled: Please call [facility] to make a follow-up appointment for 2 weeks after your surgery at . Stand-Alone Forms: My [employer], Smoking Cessation Medications and DC Order Prescriptions: New acetaminophen [Tylenol Extra Strength] 500 mg Tablet 1,000 mg PO Q8 Qty: 60 RF: 0 oxycodone 5 mg Tablet 5 - 10 mg PO .Q4h-6h MDD 6 PRN (Reason: pain) Qty: 30 RF: 0 Continued atorvastatin 20 mg Tablet 20 mg PO HS RF: 0 sotalol 80 mg Tablet 80 mg PO BID RF: 0 Eliquis 5 mg Tablet 5 mg PO BID RF: 0 furosemide 40 mg Tablet 80 mg PO DAILY RF: 0 Discontinued acetaminophen [Tylenol Ex Str Rapid Release] 500 mg Tablet 1,000 mg PO Q6H PRN (Reason: Pain) RF: 0 Discharge Orders: Discharge Order (Routine); Ordered 10/15/21 Ordered By: Chris Ann/Other Patient Handouts: ED Osteoarthritis Admission Data Admit Date/Time: 10/14/21 12:19 Attending Provider: Negrito Fry Admit Provider: Negrito Fry Primary Care Provider: Emmanuel Blanco Other Providers: Mark Rivera ; Alia Damon Other Interventions: Discharge Summary Assessment (RN) Last Done: 10/15/21 09:23
== END 2021-10-15 11:36 | disposition home health service (06) ==
LOC: PACUINP 06:43 → ASU 06:43 → 3E 14:24
DX: I48.91 Unspecified atrial fibrillation; M17.12 Unilateral primary osteoarthritis, left knee; Z87.891 Personal history of nicotine dependence; Z79.899 Other long term (current) drug therapy; Z79.01 Long term (current) use of anticoagulants; E78.5 Hyperlipidemia, unspecified; M25.762 Osteophyte, left knee